=== PATIENT | female | born 1970 | race African-American/Black ===

== ENCOUNTER 2025-01-26 14:01 | Inpatient (IN) | payer OTHER, SELFPAY ==
[2025-01-26] VITALS (7 sets, daily range): BP systolic 127–169; BP diastolic 84–107; BMI 33.3; BMI 34.5
[2025-01-26] MEDS: DUONEB 3 ML INH ×3 (12:06→19:33)
[2025-01-26] MEDS: DECADRON 10 MG IV (12:17)
[2025-01-26 12:21] LABS: Hematocrit 42.6 % (37.0-47.0); Hemoglobin 14.5 g/dL (12.0-16.0); Mean Corp Hgb Conc. 34.0 g/dL (33.0-37.0); Mean Corpuscular Volume 91.2 fL (81.0-99.0); Nucleated Red Blood Cells % 0 %; Platelet Count 239 10^3/uL (130-400); Red Cell Dist. Width 12.5 % (11.5-14.5)
--- NOTE | 2025-01-26 12:48 | ED.GENMED ---
History of Present Illness
General
Chief Complaint: Breathing Problem
Source: patient and spouse
Exam Limitations: none
Time Seen by Provider: 01/26/25 11:52
Nursing documentation reviewed up to this point in time: agreed with
History of Present Illness
History of Present Illness:
54-year-old female from urgent care where she presented with shortness of breath and wheeze history of asthma and sinus polyps on inhalers not on chronic steroids no fevers or chills has had some productive sputum symptoms started last night pulse
ox in the high 80s, received a DuoNeb and IM steroids in urgent care referred here nondrinker
Past History
Past History
ED Past Medical History: Asthma
ED Past Surgical History: Other (Sinus polyp)
Social History
Tobacco: Non-smoker
Alcohol: None
Drug: None
Personal:
Living: with family
Employment: Employed
Review of Systems
Review of Systems
All Other Systems: Not applicable
Constitutional: Denies fever or chills
Respiratory: Reports cough and trouble breathing
Cardiac: Reports no symptoms
ABD/GI: Reports no symptoms
: Reports no symptoms
Musculoskeletal: Reports no symptoms
Skin: Reports no symptoms
Neurological: Reports no symptoms
Endocrine: Reports no symptoms
Phy Exam
Physical Exam
Physical Exam:
Physical Exam
General: Dyspneic 54 female
Neck: No jaundice
Heart: s1/s2 regular rate and rhythm, no murmur. equal radial pulses.
Lungs: Wheeze bilaterally fair
Abdomen: Nontender
Neuro: alert and oriented. no focal neurological deficits
Skin: no rash
Psychiatric: well kept. interactive and cooperative
Extremities: no edema. no calf tenderness
Scores
Heart Failure Risk
Heart Failure Risk Score: Not Applicable
Course
Orders/Labs/Results
Orders:
Orders
01/26/25 11:57
Cardiac Monitoring- Treatment ONCE
IV Insert/Care/Rem.- Treatment PRN
Dexamethasone Sod Phosphate [Decadron] 10 mg IV NOW STA
Ipratropium/Albuterol Sulfate [Duoneb] 3 ml INH R NOW STA
O2 Therapy [RESP] Stat
Titrate/Wean O2 to maintain O2 sat greater than (%): 96
Peak Flow Rate [RESP] Urgent
Quantity: 1
01/26/25 11:58
Electrocardiogram (*1) Stat
Reason for Study: Other
Other Reason for Exam: pneumonia
EKG- Treatment ONCE
CR Chest Portable - 1 View Urgent
Comment:
Reason For Exam: sob
Reason Study Needs to be Portable: Patient Unstable
01/26/25 12:14
Complete Blood Count/With Diff Urgent
Comprehensive Metabolic Panel Urgent
NT-proBNP Urgent
Abnormal Lab Results
01/26/25
12:14
WBC 11.1 H 10^3/uL
(4.8-10.8)
Absolute Neuts (auto) 8.8 H 10^3/uL
(1.4-6.5)
Neutrophils % 79.0 H %
(42.2-75.2)
Lymphocytes % 13.1 L %
(20.5-51.1)
Chloride 108 H mmol/L
(98-107)
Glucose 131 H mg/dl
(70-99)
01/26/25 12:14
01/26/25 12:14
Vital Signs
Initial and Last Documented VS:
Initial Vital Signs
Temp Pulse Resp BP Pulse Ox
98.2 F 105 22 169/107 88
01/26/25 11:43 01/26/25 11:43 01/26/25 11:43 01/26/25 11:43 01/26/25 11:43
Last Documented Vital Signs
Temp Pulse Resp BP Pulse Ox
98.3 F 105 18 169/107 90
01/26/25 12:22 01/26/25 11:43 01/26/25 12:22 01/26/25 11:43 01/26/25 12:49
MDM/Problems Addressed
Differential Diagnosis Includes:
Asthma asthmatic bronchitis pneumonia heart failure doubt PE
MDM/Problems Addressed:
Shortness of breath
Chronic conditions affecting care: Asthma
Acute Exacerbation and/or Progression of Chronic Illness: Asthma
*Radiology
Radiology exam reviewed: preliminary read by ED provider
*Pulse Oximetry
SaO2: 88
Oxygen Mode of Delivery: Room air
Patient hypoxic: yes
*EKG
Interpreted by ED Provider?: Yes
Interpretation: normal
Comparison EKG: no comparison EKG present
Heart Rate: 78
Rate: normal
Rhythm: sinus
Ischemia: no ischemia
*Mh Teacher Interpretation
Rate: normal
Interpretation: normal
Heart Rate: 78
Rhythm: sinus
*Critical Care Note
Total Time (30-74mins, 75-104mins- exclusive of procedures): 17
Update Note
Update Note:
Update patient with asthma attack moderate severity, with hypoxia already received nebs and steroids will repeat dose here, low threshold to admit due to severity of illness and hypoxia
ED Attending Note
-
Portions of this chart may have been created with voice recognition software.� Occasional wrong word or��sound alike� substitutions may have occurred due to the inherent limitations of voice recognition software.
Discharge Plan
Departure
Patient Disposition: Admit
Date of Disposition: 01/26/25
Time of Disposition: 12:55
Admit to: Telemetry
Presentation/result/management discussed w/ accepting MD/DO: Hospitalist
Patient with high blood pressure during this ER visit?: Yes
Condition: Fair
Covid-19: Not Applicable
Discharge Problem:
Acute severe exacerbation of asthma
Interventions
Interventions:
*Risk Screen - Suicide Last Done: 01/26/25 11:43
*General Assessment Last Done: 01/26/25 11:43
*Neglect/Abuse Screening Last Done: 01/26/25 11:43
*ED Influenza Vaccine History Last Done: 01/26/25 11:43
ED- Cardiac Assessment Last Done: 01/26/25 12:22
ED- Pulmonary Assessment Last Done: 01/26/25 12:22
Discharge Date and Time
Print Language: MALAY
[2025-01-26 12:53] LABS: ALT (SGPT) 27 U/L (0-35); AST (SGOT) 28 U/L (14-36); Albumin 4.8 g/dl (3.5-5.0); Alkaline Phosphatase 75 U/L (38-126); Blood Urea Nitrogen 9 mg/dl (7-17); Calcium 9.4 mg/dl (8.4-10.2); Carbon Dioxide 22 mmol/L (22-30); Chloride 108 mmol/L (98-107); Estimated Creatinine Clearance 101 ml/min; Glucose 131 mg/dl (70-99); Potassium 4.2 mmol/L (3.5-5.1); Sodium 137 mmol/L (135-145); Total Protein 8.2 g/dl (6.3-8.2); eGFR > 60.00
--- NOTE | 2025-01-26 13:31 | HPS.HSE ---
Addendum entered and electronically signed by Inderjit Gutierrez MD 01/26/25 14:37:
This is an addendum to H&P written by Raj Kearney on 01/26/2025. �Patient seen and examined independently with resident.
54-year-old female past medical history of moderate persistent asthma, chronic sinusitis, presenting with productive cough for 1 week with shortness of breath. �Noncompliant with Advair.
Vitals show O2 sat 88 percent. HR 105. Diffuse wheezing on exam. Patient requires 4L oxygen.
CXR suggesting atellectasis.�
Patient with acute asthma exacerbation. Duonejose raul, Octavioadchanel.
Original Note:
Family Physician
-
Family Physician: Milton Levy
Chief Complaint
-
Shortness of breath, cough
History of Present Illness
54-year-old female with history of moderate persistent asthma diagnosed 4 years ago, chronic sinusitis, chronic allergic rhinitis, postnasal drainage, HTN presents to the ED with shortness of breath. Patient reports that she has been having
ongoing productive cough for the past 1 week with yellowish phlegm every morning. Patient notes that last night she woke up coughing and she found herself short of breath. She notes of using her rescue inhaler more frequently for the past 1 week.
She is noncompliant with maintenance inhaler (ADVAIR). She notes that this is the worst event of asthma exacerbation. She also notes of gluten sensitivity, bread and pizza causes wheezing. She denies recent illness, recent allergic reaction, no
recent travels.
In the ED she received first round of DuoNeb, oxygen saturating to 92%. On physical exam, frequent cough while giving history but able to speak in full sentences. Lung auscultation notes of diffuse scattered, expiratory wheezes, no use of
accessory muscles.
Medical History
Past Medical History
Past Medical History: Reports Asthma
Past Surgical History: Reports Other (sinus polyp)
Social History
Tobacco: Non-smoker
Alcohol: None
Drug: None
Personal:
Living: With Family
Employment: Employed
Family History
Family History: Not pertinent
Allergies / Home Medications
Allergies reflects when Allergies were last updated in [facility].
Home Medications with original date entered in [facility]
Allergy/Medication List:
Allergies
Allergy/AdvReac Type Severity Reaction Status Date / Time
Sulfa (Sulfonamide Allergy Unknown Unknown Verified 01/26/25 11:47
Antibiotics)
aspirin Allergy Unknown Verified 01/26/25 11:47
ibuprofen Allergy Unknown Verified 01/26/25 11:47
Home Medications
albuterol sulfate 90 mcg/actuation aerosol inhaler 2 puff inhalation R Q6HPRN PRN sob 01/26/25
amlodipine 10 mg tablet (Norvasc) 10 mg PO DAILY Blood Clot Prevention/Tx 01/26/25
[id number]-acetaminophen 7.5 mg-60 [id number]/30mL oral liqd 15 ml PO DAILYPRN PRN cough 01/26/25
fluticasone 500 mcg-salmeterol 50 mcg/dose blistr powdr for inhalation (Advair Diskus) 1 inh inhalation R BID Lung/Breathing Issues 01/26/25
Review of Systems
-
History Source: Patient
A 12 point ROS was completed and negative except as noted: Yes
Respiratory: Reports Cough and Trouble Breathing
Physical Exam
Vital Signs
Vital Signs
Temp Pulse Resp BP Pulse Ox
98.3 F 105 18 169/107 93
01/26/25 12:22 01/26/25 11:43 01/26/25 12:22 01/26/25 11:43 01/26/25 13:00
Physical Exam
General: Conversant, Respiratory Distress (mild ) and Other (Able to speak in full sentences)
HEENT: NormoCephalic and Anicteric
Respiratory: Wheezes (Diffuse scattered); No Accessory Resp Muscle Use
Cardiac: S1/S2 and Regular Rhythm
GI: Soft, Non Tender and Non Distended
Musculoskeletal: No Edema
Skin: Warm and Dry
Neuro: AO x 3
Hematologic/Lymphatic: No Lymphadenopathy
Psych: Calm
Laboratory Results
-
01/26/25 12:14
01/26/25 12:14
Laboratory Results
Total Bilirubin 0.7 mg/dl (0.2-1.3) 01/26/25 12:14
AST 28 U/L (14-36) 01/26/25 12:14
ALT 27 U/L (0-35) 01/26/25 12:14
Alkaline Phosphatase 75 U/L (38-126) 01/26/25 12:14
Data Reviewed
-
Diagnostic Radiology: Report Reviewed by me and Discussed with Physician
Lab Data: Labs Reviewed by me and Discussed with Physician
Impression/Plan
-
IMPRESSION:
Acute asthma exacerbation
Acute hypoxic respiratory insufficiency
Essential hypertension
History of chronic sinusitis
History of gluten sensitivity
History of allergic rhinitis
PLAN:
#Acute asthma exacerbation
Diagnosed 4 years ago
Noncompliant with maintenance inhaler (Advair)
Frequent use of rescue inhaler in the past week
No recent illnesses.
Start DuoNeb 4 times daily and budesonide daily
IV Decadron 4 mg Q12
+Productive cough with yellowish phlegm--- check sputum culture, mucolytics BID
Chest x-ray looks unremarkable. No abx needed.
Wean O2 as able, keep pulse ox >95
#Acute hypoxic respiratory insufficiency
Wean O2 as able, keep pulse ox >95
#Essential hypertension
continue amlodipine
#History of chronic sinusitis
No recent illnesses
Start zyrtec daily
#History of gluten sensitivity
#History of allergic rhinitis
Full code
Regular diet
Lovenox
--- NOTE | 2025-01-26 13:46 | CM ---
chart reviewed. Spoke with patient and her father Capo at ED bedside
Lives with father in a split level home with 6 TRAE
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
no DME
PCP Dr. Pineda Clay
RX plan yes
Pharmacy [facility] in [place]
no hx of VN nor SNF
DCP is to return home no needs
CM will continue to follow up witn any dcp needs
[2025-01-26] MEDS: DUONEB INH (16:12)
[2025-01-26] MEDS: MUCINEX 600 MG PO ×2 (16:55→20:11)
[2025-01-26] MEDS: ADVAIR HFA 230/21 MCG INHALER 2 PUFF INH (19:32)
[2025-01-26] MEDS: DECADRON 4 MG IV (23:03)
[2025-01-27] MEDS: TYLENOL 650 MG PO (00:53)
[2025-01-27 06:59] LABS: Hematocrit 39.7 % (37.0-47.0); Hemoglobin 14.0 g/dL (12.0-16.0); Mean Corp Hgb Conc. 35.3 g/dL (33.0-37.0); Mean Corpuscular Volume 89.0 fL (81.0-99.0); Platelet Count 285 10^3/uL (130-400); Red Cell Dist. Width 12.7 % (11.5-14.5)
[2025-01-27] MEDS: LIDOCAINE 4% PATCH 1 PATCH TOPICAL (07:08)
[2025-01-27] MEDS: ZYRTEC 10 MG PO (07:09)
[2025-01-27] MEDS: NORVASC 10 MG PO (07:09)
[2025-01-27] MEDS: MUCINEX 600 MG PO (07:09)
[2025-01-27 07:20] VITALS: BP 167/98
[2025-01-27 07:25] LABS: Blood Urea Nitrogen 10 mg/dl (7-17); Calcium 10.2 mg/dl (8.4-10.2); Carbon Dioxide 24 mmol/L (22-30); Chloride 106 mmol/L (98-107); Estimated Creatinine Clearance 90 ml/min; Glucose 135 mg/dl (70-99); Potassium 4.4 mmol/L (3.5-5.1); Sodium 138 mmol/L (135-145); eGFR > 60.00
[2025-01-27] MEDS: ADVAIR HFA 230/21 MCG INHALER 2 PUFF INH (07:48)
[2025-01-27] MEDS: DUONEB 3 ML INH ×2 (07:48→11:22)
--- NOTE | 2025-01-27 11:48 | W.PN.HOSP.TC ---
Addendum entered and electronically signed by Ning Moralez MD 01/27/25 13:40:
Attending�addendum:
I saw and evaluated the patient independently. I reviewed and discussed the resident�s note and agree with findings and plan as documented in the resident�s note.� Patient seen and examined at bedside, denies any chest pain , shortness of breath
Improved, no abdominal pain, no nausea, no vomiting, no diarrhea or constipation.
Less wheezy
Physical�exam:
GENERAL : Patient is awake, alert, oriented x3
HEENT: Nonicteric sclerae, PERRLA, EOMI. Oropharynx clear. Moist mucous membranes. Conjunctivae appear well perfused.
CHEST: Chest wall is nontender.
HEART: Regular rate and rhythm without murmurs.
LUNGS: Very minimal end expiratory wheezing
ABDOMEN: Soft, positive bowel sounds, nontender, no organomegaly.
RECTAL: Deferred.
MUSCLES/EXTREMITIES: No abnormal range of motion, no swelling.SKIN: No rash, no excessive bruising, petechiae, or purpura.
NEUROLOGIC: Cranial nerves II-XII intact without motor/sensory deficit.
�
Assessment/plan:
Asthma exacerbation.
Dramatically improved overnight.
Will be discharged on nebulizer treatment and prednisone taper
Advised to follow-up with pulmonology as OP
CODE STATUS: Full code
Disposition: Discharge home today
�
Total time spent on today�s encounter was 51 minutes which included time spent in counseling the patient/family regarding diagnosis and treatment plan as listed above, goals of care, and symptom management. Case was discussed with nursing staff,
specialists, and care coordinators/case management. All labs and imaging personally reviewed by me. Remainder the time spent in detailed review of previous records, lab data, imaging, and other medical provider documentation.
Original Note:
Today's Communication/Plan
-
- Discharge home today with steroid taper
- Asthma exacerbation likely setting of mild subclinical asthma
- Referring for pulmonology outpatient follow-up, previously established care with Dr. Amaya
Assessment / Plan
Assessment / Plan
#Acute asthma exacerbation
- In setting of likely mild subclinical asthma
- First experienced symptoms of asthma 4 years ago at age 50 when patient moved from home in [place] to home in [facility]
- Patient with mold exposure in her home
- Albuterol inhaler and Advair prescribed currently, with patient reported noncompliance
- Will recommend follow-up outpatient with pulmonology
- Much improved on dexamethasone
- Plan for steroid taper at discharge
#Acute hypoxic respiratory insufficiency
- Patient saturating well on room air
#Essential hypertension
- Continue amlodipine
#History of chronic sinusitis
- Start Zyrtec daily
Anticipated Discharge: Today
Subjective/Interval History
-
Date of Service: January 27, 2025
Patient seen at the bedside with Dr. Moralez this morning. Patient is feeling much better today. Patient still notes some mild wheezing, but is no longer short of breath. Patient expressed that she would like to be discharged today.
Objective Data
-
Labs:
Laboratory Results
01/27/25
06:20
WBC 14.8 H
Hgb 14.0
Hct 39.7
Plt Count 285
Sodium 138
Potassium 4.4
Chloride 106
Carbon Dioxide 24
BUN 10
Creatinine 0.8
Glucose 135 H
Calcium 10.2
Vital Signs:
Vital Signs
Temp Pulse Resp BP Pulse Ox
97.9 F 116 18 167/98 96
01/27/25 07:20 01/27/25 11:23 01/27/25 11:23 01/27/25 07:20 01/27/25 11:23
I&O
01/26/25 01/27/25 01/28/25
06:59 06:59 06:59
Intake Total 960 / 960
Balance 960 / 960
Review of Systems
-
History Source: Patient
Constitutional: Reports No Symptoms
EENT: Reports No Symptoms Reported
Respiratory: Reports Wheezing
Cardiac: Reports No Symptoms
Abdomen/GI: Reports No Symptoms
Genitourinary: Reports No Symptoms
Musculoskeletal: Reports No Symptoms
Skin: Reports No Symptoms
Neuro: Reports No Symptoms
Endocrine: Reports No Symptoms
Hematologic / Lymphatic: Reports No Symptoms
Allergy / Immunology: Reports No Symptoms
Physical Exam
-
General: Well Developed, Well Nourished, No Apparent Distress and Comfortable
HEENT: Normocephalic, Atraumatic and Moist Mucous Membranes
Respiratory: Wheezes (Few, bilateral) and Non Labored Respirations
Cardiac: Regular Rhythm
GI: Soft, Nontender and Nondistended
Musculoskeletal: No Edema
Skin: Warm and Dry
Neuro: Awake, Alert and Oriented
Psych: Calm
[2025-01-27] MEDS: DECADRON 4 MG IV (11:54)
[2025-01-27 12:13] LABS: Glycohemoglobin (HgbA1c) 5.8 % (4.0-5.9)
--- NOTE | 2025-01-27 13:05 | W.DCSUMMARY ---
Addendum entered and electronically signed by Ning Moralez MD 01/27/25 13:40:
Attending�addendum:
I saw and evaluated the patient independently. I reviewed and discussed the resident�s note and agree with findings and plan as documented in the resident�s note.� Patient seen and examined at bedside, denies any chest pain , shortness of breath
Improved, no abdominal pain, no nausea, no vomiting, no diarrhea or constipation.
Less wheezy
Physical�exam:
GENERAL : Patient is awake, alert, oriented x3
HEENT: Nonicteric sclerae, PERRLA, EOMI. Oropharynx clear. Moist mucous membranes. Conjunctivae appear well perfused.
CHEST: Chest wall is nontender.
HEART: Regular rate and rhythm without murmurs.
LUNGS: Very minimal end expiratory wheezing
ABDOMEN: Soft, positive bowel sounds, nontender, no organomegaly.
RECTAL: Deferred.
MUSCLES/EXTREMITIES: No abnormal range of motion, no swelling.SKIN: No rash, no excessive bruising, petechiae, or purpura.
NEUROLOGIC: Cranial nerves II-XII intact without motor/sensory deficit.
�
Assessment/plan:
Asthma exacerbation.
Dramatically improved overnight.
Will be discharged on nebulizer treatment and prednisone taper
Advised to follow-up with pulmonology as OP
CODE STATUS: Full code
Disposition: Discharge home today
�
Total time spent on today�s encounter was 51 minutes which included time spent in counseling the patient/family regarding diagnosis and treatment plan as listed above, goals of care, and symptom management. Case was discussed with nursing staff,
specialists, and care coordinators/case management. All labs and imaging personally reviewed by me. Remainder the time spent in detailed review of previous records, lab data, imaging, and other medical provider documentation.
Addendum Dictated by: Ning Moralez MD
Original Note:
Documented by User: Diana Yang DO, Resident 01/27/25 13:11
Discharge Summary
Discharge Data
Date of Admission: 01/26/25
Date of Discharge: 01/27/25
-
Pending Results: No
Hospital Course
Primary diagnosis: Acute asthma exacerbation
Secondary diagnosis: Hypertension, chronic sinusitis
Hospital course:
Patient is a 54-year-old female with a PMH significant for moderate persistent asthma and chronic sinusitis who presented to [facility] with a productive cough and shortness of breath on 01/26/2025. In the ED, patient had a chest x-ray which showed low
lung volumes with questionable minimal but basilar airspace disease/atelectasis. Patient's blood work was unremarkable. Vitals indicated O2 saturation of 88%. Patient had diffuse wheezing and required 4 L of O2. Patient was admitted with acute
asthma exacerbation, started on DuoNebs and Decadron.
Given patient's history of first experiencing asthma 4 years ago as an adult, this acute asthma exacerbation is likely in the setting of mild subclinical asthma. Triggers uncertain, but we discussed possible mold exposure in her 40-year-old home.
Patient had marked improvement overnight with medication intervention. Patient no longer requires supplemental oxygen. Patient feels much better and is ready to go home. We recommended close follow-up with pulmonology outpatient to discuss
maintenance medication. We also discharge patient on a prednisone taper and prescribed nebulized albuterol with nebulizer.
Patient will be discharged home.
Imaging:
IMPRESSION:
Low lung volumes with questionable minimal bibasilar airspace disease/atelectasis. No pleural effusions.
Discharge Plan
-
Patient Disposition: Home (Routine Discharge)
Discharge Diagnosis/Procedures: Acute asthma exacerbation
Condition: Good
Diet: Low Sodium
Activity: No restrictions
Driving Restrictions: As prior to admission
Bathing Restrictions: None
Activity Restrictions/Additional Instructions:
Please make a follow-up appointment with pulmonology outpatient within 2 weeks.
Instructions: Return to school or work - ED (DC)
Stand Alone Forms: Return to Work
Referrals:
Milton Levy, [Family Provider, Family Practice]
Sandra Don, DO [Active, Pulmonary Medicine]
Prescriptions:
New
cetirizine 10 mg Tablet
10 mg PO DAILY 30 Days Qty: 30 0RF
prednisone 10 mg Tablet
See Rx Instructions .ROUTE .COMPLEX Qty: 30 0RF
Rx Instructions:
Take By Mouth:
40 mg daily x3 days, 30 mg daily x3 days,
20 mg daily x3 days, 10 mg daily x3 days.
(DME) nebulizers Misc
See Rx Instructions .Route Qty: 1 0RF
Rx Instructions:
As directed
albuterol sulfate 2.5 mg /3 mL (0.083 %) solution for nebulization
2.5 mg inhalation QID PRN (Reason: shortness of breath or wheezing) Qty: 90 0RF
Continued
amlodipine [Norvasc] 10 mg Tablet
10 mg PO DAILY
fluticasone propion-salmeterol [Advair Diskus] 500-50 mcg/dose Blister With Device
1 inh INHALATION R BID
albuterol sulfate 90 mcg/actuation Hfa Aerosol Inhaler
2 puff INHALATION R Q6HPRN PRN (Reason: sob)
Discontinued
NyQuil 7.5-60-30-1,000 mg/30 mL Liquid
15 ml PO DAILYPRN PRN (Reason: cough)
Discharge Orders:
Discharge Patient (As Directed); Ordered 01/27/25
Ordered By: Ning Moralez
Discharge Date and Time
Print Language: ARABIC

Documented by User: Ning Moralez MD 01/27/25 13:40
Discharge Summary
Discharge Data
Date of Admission: 01/26/25
Date of Discharge: 01/27/25
Discharge Plan
-
Patient Disposition: Home (Routine Discharge)
Discharge Diagnosis/Procedures: Acute asthma exacerbation
Condition: Good
Diet: Low Sodium
Activity: No restrictions
Driving Restrictions: As prior to admission
Bathing Restrictions: None
Activity Restrictions/Additional Instructions:
Please make a follow-up appointment with pulmonology outpatient within 2 weeks.
Instructions: Return to school or work - ED (DC)
Stand Alone Forms: Return to Work
Referrals:
Milton Levy DO [Family Provider, Family Practice]
Sandra Don DO [Active, Pulmonary Medicine]
Prescriptions:
New
cetirizine 10 mg Tablet
10 mg PO DAILY 30 Days Qty: 30 0RF
prednisone 10 mg Tablet
See Rx Instructions .ROUTE .COMPLEX Qty: 30 0RF
Rx Instructions:
Take By Mouth:
40 mg daily x3 days, 30 mg daily x3 days,
20 mg daily x3 days, 10 mg daily x3 days.
(DME) nebulizers Misc
See Rx Instructions .Route Qty: 1 0RF
Rx Instructions:
As directed
albuterol sulfate 2.5 mg /3 mL (0.083 %) solution for nebulization
2.5 mg inhalation QID PRN (Reason: shortness of breath or wheezing) Qty: 90 0RF
Continued
amlodipine [Norvasc] 10 mg Tablet
10 mg PO DAILY
fluticasone propion-salmeterol [Advair Diskus] 500-50 mcg/dose Blister With Device
1 inh INHALATION R BID
albuterol sulfate 90 mcg/actuation Hfa Aerosol Inhaler
2 puff INHALATION R Q6HPRN PRN (Reason: sob)
Discontinued
NyQuil 7.5-60-30-1,000 mg/30 mL Liquid
15 ml PO DAILYPRN PRN (Reason: cough)
Discharge Orders:
Discharge Patient (As Directed); Ordered 01/27/25
Ordered By: Ning Moralez
Discharge Date and Time
Print Language: ARABIC
[2025-01-27 13:54] VITALS: BP 147/91
== END 2025-01-27 14:07 | disposition home or self-care (01) | DRG 203 ==
LOC: 4 WEST ACU 14:01
PROVIDERS: Student in an Organized Health Care Education/Training Program; ADMITTING PHYSICIAN Hospitalist; ATTENDING PHYSICIAN General Practice; EMERGENCY PHYSICIAN Emergency Medicine; FAMILY PHYSICIAN Family Medicine
DX: J45.41 Moderate persistent asthma with (acute) exacerbation (principal); R09.02 Hypoxemia; I10 Essential (primary) hypertension; J32.9 Chronic sinusitis, unspecified; Z79.51 Long term (current) use of inhaled steroids; Z79.899 Other long term (current) drug therapy; Z91.199 Patient's noncompliance with other medical treatment and regimen due to unspecified reason
CPT/HCPCS: 71045; 80048; 80053; 83036; 83880; 85025; 85027; 87070; 87205; 93005; 94640; 96374; 99285